=== PATIENT | male | born 2000 | race Two or more races ===

== ENCOUNTER 2021-01-29 11:35 | Emergency (ER) | payer OTHER ==
[~2021-01-29] VITALS: Ht 180.3 cm; Wt 86.2 kg
[2021-01-29 14:35] VITALS: BP 127/71
== END 2021-01-29 14:47 | disposition home or self-care (01) ==
LOC: ER 11:35
DX: R51.9 Headache, unspecified (principal); G93.0 Cerebral cysts; V43.62XA Car passenger injured in collision with other type car in traffic accident, initial encounter; Y93.89 Activity, other specified; Y92.410 Unspecified street and highway as the place of occurrence of the external cause; Y99.8 Other external cause status
CPT/HCPCS: 70450